=== PATIENT | female | born 1980 | race Caucasian/White ===

== ENCOUNTER 2022-10-04 19:49 | Emergency (ER) | payer OTHER ==
[2022-10-04 20:05] VITALS: BP 129/84; PULSE 73; RESP 20; TEMP 97.9; BMI 34.9
== END 2022-10-04 22:10 | disposition home or self-care (01) ==
LOC: JERFT 19:49
PROC: 0HQDXZZ Repair Right Lower Arm Skin, External Approach (ICD-10-PCS; principal; 2022-10-04)
DX: S61.511A Laceration without foreign body of right wrist, initial encounter (principal); W26.8XXA Contact with other sharp object(s), not elsewhere classified, initial encounter
CPT/HCPCS: 99282-25

== ENCOUNTER 2022-10-14 16:26 | Emergency (ER) | payer OTHER ==
[2022-10-14 16:39] VITALS: BP 106/66; PULSE 75; RESP 18; TEMP 98; BMI 34.9
[2022-10-14] MEDS ORDERED: BACITRACIN ZINC 15 GM TUBE TOPICAL OINTMENT TP ONE (17:57)
== END 2022-10-14 18:01 | disposition home or self-care (01) ==
LOC: JERFT 16:26 → JER 16:26 → JERFT 18:01
DX: Z48.02 Encounter for removal of sutures (principal)
CPT/HCPCS: 99281-25

== ENCOUNTER 2025-03-12 07:47 | Day surgery (SDC) | payer OTHER ==
[2025-03-10 12:25] VITALS: BMI 39.9
[2025-03-12] MEDS ORDERED: DEXAMETHASONE SOD PHOSPHATE 10 MG/1 ML VIAL ONE (07:58)
[2025-03-12] MEDS ORDERED: ACETAMINOPHEN 500 MG TABLET (FP) PO PRN (09:13)
[2025-03-12] MEDS ORDERED: LIDOCAINE HCL/PF 1% SDV 5ML VIAL ONE (10:55)
[2025-03-12 15:22] VITALS: RESP 20
[2025-03-12] MEDS: LIDOCAINE HCL 1% PRESERVATIVE FREE - 30ML VIAL IJ ONE ×2 (16:20)
[2025-03-12] MEDS: IOHEXOL 180 MG/1 ML ML IJ ONE ×2 (16:22)
[2025-03-12] MEDS: DEXAMETHASONE SOD PHOSPHATE 10 MG/1 ML VIAL IVPUSH ONE ×2 (16:26)
[2025-03-12 17:52] VITALS: BP 118/58; PULSE 72; TEMP 97.3
== END 2025-03-12 16:50 | disposition home or self-care (01) ==
LOC: JASU-SURG 07:47
PROVIDERS: ATTEND Pain Medicine Pain Medicine
PROC: 3E0R3BZ Introduction of Anesthetic Agent into Spinal Canal, Percutaneous Approach (ICD-10-PCS; 2025-03-12)
PROC: 3E0R33Z Introduction of Anti-inflammatory into Spinal Canal, Percutaneous Approach (ICD-10-PCS; principal; 2025-03-12 16:00)
DX: M54.16 Radiculopathy, lumbar region (principal)
CPT/HCPCS: 76000-TC-FY; J1100